=== PATIENT | male | born 1965 | race Two or more races ===

== ENCOUNTER 2019-10-07 09:33 | Emergency (ER) | payer OTHER, BC ==
[~2019-10-07] VITALS: Ht 177.8 cm; Wt 117.9 kg
[2019-10-07 09:58] VITALS: BP 152/92
[2019-10-07] MEDS ORDERED: KETOROLAC TROMETH 60MG/2ML VIAL IM ONE (10:15)
== END 2019-10-07 11:45 | disposition home or self-care (01) ==
LOC: ER 09:33
DX: S39.011A Strain of muscle, fascia and tendon of abdomen, initial encounter (principal); S46.912A Strain of unspecified muscle, fascia and tendon at shoulder and upper arm level, left arm, initial encounter; S83.92XA Sprain of unspecified site of left knee, initial encounter; S06.9X9A Unspecified intracranial injury with loss of consciousness of unspecified duration, initial encounter; E11.9 Type 2 diabetes mellitus without complications; X58.XXXA Exposure to other specified factors, initial encounter; Y93.89 Activity, other specified; Y92.89 Other specified places as the place of occurrence of the external cause; Y99.8 Other external cause status
CPT/HCPCS: 70450; 73562; 74176; 96372; 99285; J1885